=== PATIENT | male | born 1940 | race Caucasian/White ===

== ENCOUNTER 2016-09-03 00:08 | Emergency (ER) | payer MEDICARE ==
[~2016-09-03 00:08] MED LIST: AMLO5TAB2 PO; ASPI81TA3 PO; CALC-3 PO; CYCL10TA9 PO; GLIP10TA10 PO; HYDR12.55 PO; LIP40 PO; LISI40TA PO; METF1000 PO; METO50TA3 PO; OMEP20CA11 PO; TICA90TA PO; ZYL100 PO
[2016-09-03 00:14] VITALS: BP 132/84; PULSE 83; RESP 20; O2SAT 99
[2016-09-03 02:08] VITALS: BP 132/84; PULSE 83; RESP 20; O2SAT 99
[2016-09-03] MEDS ORDERED: Ondansetron 2 mg/mL 2 mL Inj IVPUSH ONE (02:20)
--- NOTE | 2016-09-03 02:20 | ED.REPORT ---
HPI-Back Pain 40 and Over Date of Service September 03, 2016 ED Provider: Dr. Shivam Guevara D.O. A 75 year old male with a medical history including CAD, DM, hypertension, chronic kidney disease, and arthritis s/p multiple back surgeries presents to the ED with left-sided lower back pain onset four weeks ago. Today, the patient was unable to ambulate. He denies dysuria or other symptoms. The patient has had similar symptoms in the past. Nursing Notes Stated Complaint: LOWER BACK PAIN Chief Complaint: Back Pain or Injury Nursing Notes Reviewed: Yes Allergies: Coded Allergies: No Known Allergies (Verified , 08/13/15) Scheduled Allopurinol (Allopurinol) 100 Mg Tablet 200 MG PO DAILY Amlodipine (Amlodipine) 5 Mg Tablet 5 MG PO DAILY Aspirin Chew (Aspirin Chew) 81 Mg Chew 81 MG PO DAILY Atorvastatin (Lipitor) 40 Mg Tablet 40 MG PO DAILY Glipizide (Glipizide) 10 Mg Tablet 10 MG PO BID Hydrochlorothiazide (Hydrochlorothiazide) 12.5 Mg Tablet 12.5 MG PO DAILY Lisinopril (Lisinopril) 40 Mg Tablet 40 MG PO DAILY Metformin (Glucophage) 1,000 Mg Tablet 1,000 MG PO BID Metoprolol Tartrate (Metoprolol Tartrate) 50 Mg Tablet 50 MG PO BID Omeprazole (Omeprazole) 20 Mg Capsule.dr 20 MG PO DAILY Prednisone (PredniSONE) 20 Mg Tablet 20 MG PO TID Scheduled PRN Cyclobenzaprine (Cyclobenzaprine) 10 Mg Tablet 10 MG PO HS PRN PRN Spasm Hydrocodone-Acetaminophen 5-325 mg (Hydrocodone-Acetaminophen 5-325 mg) 1 Each Tablet 1 TABLET PO Q4H PRN PRN For Pain Miscellaneous Medications Calcium Carbonate/Vitamin D3 (Calcium 500+D Tablet Chew) 1 Each Tab.chew 1 EACH PO Ticagrelor (Brilinta) 90 Mg Tablet 90 MG PO General Time Seen by MD: 02:19 Chief Complaint Lumbar pain Hx Obtained From: Patient Arrived By: Walk-in Sudden in Onset?: No Onset Occurred: More than a week ago... (4 weeks) Symptom Duration: Since onset Location: : Perispinal lumbar Quality: Painful Severity: Current: Moderate Severity: Maximum: Moderate Pertinent Negative: Relieved by nothing Related History: Reports: Arthritis Recent Healthcare: No recent doctor visit Similar Sx Previous: Yes Past Medical History Past Medical History Notes: PCP is Dr. Garcia Past Medical History [place] in 05/2015 Chronic kidney disease Hypertension Type II diabetes mellitus, Arthritis Coronary artery disease Hyperlipidemia Reports: Coronary artery disease, Diabetes mellitus, GERD Past Surgical History July 04 (2 stents) PEDRO and LAD subsequent restenting with a diagonal and left circumflex flex (5 stents) Reports: Back/neck surgery, Knee replacement Family History noncontributory Smoking History Former Smoker Social History Other Social History: Good social support, Local resident Ambulatory Status Independent Review of Systems Constitutional: Denies: Fever Respiratory: Denies: Non-productive cough, Shortness of breath GI: Denies: Diarrhea, Vomiting Male: Denies Dysuria Musculoskeletal: Reports: Back pain (Lower left-sided) Neurologic: Reports: Problem walking Complete sys rev & neg: except as marked. Physical Exam Initial Vital Signs Vital Signs (First) Date Time Temp Pulse Resp B/P Pulse Ox O2 Delivery O2 Flow Rate FiO2 09/03/16 00:14 36.6 83 20 132/84 99 Room Air Initial VS: Reviewed Head / Eyes: Atraumatic, Normocephalic ENT: Conjunctiva normal, No scleral icterus Neck: Supple, Full range of motion Skin: Warm, Dry, No cyanosis Psychiatric: Mood/affect normal, Behavior normal, Normal thought content General/Constitutional: Awake, Alert Distress / Hydration: Positive: Distress moderate Back: Atraumatic Flank / Spine / Paraspinal: Positive: Flank tender L Neurologic: Oriented X3, Speech NL, No motor deficits, No sensory deficits Interpretation & Diagnostics CT ABDOMEN/PELVIS Read by [facility] IMPRESSION: Degenerative spinal changes as described with severe bilateral neural foraminal narrowing bilaterally at the L5/S1 levels more now pronounced on the left side. COPD Lab Results Interpretation Result Diagram: 09/03/16 0201 09/03/16 0201 Test 09/03/16 02:01 White Blood Count 6.8th/mm3 (3.8-10.1) Red Blood Count 3.88mil/mm3 (4.40-5.80) Hemoglobin 12.8g/dL (13.8-17.2) Hematocrit 37.3% (41.0-50.0) Mean Corpuscular Volume 96.1fL (81-100) Mean Corpuscular Hemoglobin 33.0pg (27.0-35.0) Mean Corpuscular Hemoglobin Concent 34.3% (32.0-37.0) Red Cell Distribution Width 12.3% (12.3-15.4) Platelet Count 237bil/L (150-400) Neutrophils (%) (Auto) 67.5% (40-74) Lymphocytes (%) (Auto) 19.3% (14-46) Monocytes (%) (Auto) 8.9% (4-12) Eosinophils (%) (Auto) 2.8% (0-5) Basophils (%) (Auto) 0.6% (0-3) Sodium Level 141mEq/L (134-144) Potassium Level 4.9mEq/L (3.5-5.2) Chloride Level 106mEq/L (97-108) Carbon Dioxide Level 20mmol/L (18-29) Blood Urea Nitrogen 31mg/dL (8-27) Creatinine 1.25mg/dL (0.76-1.27) Estimat Glomerular Filtration Rate 60mL/min (>59) Glucose Level 256mg/dL (60-99) Calcium Level 9.4mg/dL (8.5-10.1) Total Bilirubin 0.2mg/dL (0.0-1.2) Aspartate Amino Transf (AST/SGOT) 22U/L (0-50) Alanine Aminotransferase (ALT/SGPT) 27U/L (0-44) Alkaline Phosphatase 48U/L (25-160) Total Protein 6.6g/dL (6.4-8.4) Albumin 4.2g/dL (3.4-5.0) Lipase 36U/L (13-60) Re-Eval/Medical Decision Med Decision/Clinical Course Radicular back pain with no evidence of other etiology or medical complication. Started on prednisone. Follow-up with at [facility] for further evaluation and possible treatment with epidural steroid injections. Source of Hx: Old records Re-Evaluation/Progress : Time of Eval: 02:59 Patient Status: Condition improved Re-Evaluation/Progress Note: Patient's care will be transferred to Dr. Phelps at change of shift. Counseled Regarding: Diagnosis, Lab results, Need for follow-up, When/why to return to ED Discharge & Departure Shift Change Sign-Out Patient Care Transferred: Yes (Dr. Phelps) Discussed Complaint(s): Yes Laboratory Evaluation: Ordered, not yet done Imaging Studies: Ordered, not yet done Response to Therapy: Improved Impression: Primary Impression: Radiculopathy, lumbar region Disposition: Home Discharge Condition All VS Reviewed: Yes Condition: No Change Patient Instructions: Lumbar Radiculopathy (ED) Additional Instructions: CT scan shows several areas of nerve root compression in the lumbar spine. Prednisone 20 mg by mouth 3 times a day may be helpful in reducing the swelling and inflammation and improving your situation. Follow-up with at [facility] for further evaluation and possible treatment with epidural steroid injections. Referrals: Henok Garcia MD (PCP) Scott Marie MD Care Transferred to: Dr. Phelps Care Transferred at: 03:00 Scribcoty Attestation Portions of this note were transcribed by Belle Barron and Esperanza Cee. I, Dr. Guevara and Dr. Phelps, personally performed the history, physical exam, and medical decision-making; I reviewed and confirmed the accuracy of the information in the transcribed note. Signed by: Kajal Hernandes, 09/03/2016, 03:05 copies to: Henok Garcia MD; Scott Marie MD, Todd P DO September 03, 2016 02:20 BELLE BARRON September 03, 2016 02:30 ESPERANZA CEE September 03, 2016 04:02 Angel Phelps MD September 03, 2016 04:50
[2016-09-03] MEDS: HYDROmorphone 0.5 mg/0.5 mL iSecure Syringe IVPUSH PRN ×3 (02:28→05:04)
[2016-09-03 02:37] LABS: BASOPHILS % (AUTO) 0.6 % (0-3); EOSINOPHILS % (AUTO) 2.8 % (0-5); MONOCYTES % (AUTO) 8.9 % (4-12); Mean Corpuscular Volume 96.1 fL (81-100); NEUTROPHILS % (AUTO) 67.5 % (40-74); Platelet Count 237 bil/L (150-400)
[2016-09-03 04:03] VITALS: BP 137/78; PULSE 68; RESP 19; O2SAT 95
[2016-09-03] MEDS ORDERED: predniSONE 20 mg Tablet PO ONE (04:50)
[2016-09-03] MEDS ORDERED: PRE20 PO (04:51)
[2016-09-03] MEDS ORDERED: HYDR-4003 PO (05:01)
[2016-09-03 05:38] VITALS: BP 146/74; PULSE 71; RESP 18; O2SAT 97
--- NOTE | 2016-09-03 08:02 | DRSVH ---
PROCEDURE: CT KUB ([id number]) INDICATIONS: severe left flank pain TECHNIQUE: Noncontrast 5 mm thick sections acquired from the diaphragms to the symphysis. 5 mm thick coronal an d sagittal reformats were then performed. For radiation dose reduction, the following was used: aut omated exposure control, adjustment of mA and/or kV according to patient size. COMPARISON: None. FINDINGS: Image quality: Excellent. Lung bases: Bibasilar scarring is present. Heart size is normal. Urinary system: Both kidneys are normal in size. No kidney stones. No hydronephrosis or perinephri c fat stranding. Both ureters appear non-dilated throughout their expected courses. Bladder wall th ickness is normal; no calcified bladder stones. Other solid organs: Liver and spleen are normal in size. Gallbladder is within normal limits. Panc reas is normal in contours. No adrenal nodules. Peritoneum and bowel: Unenhanced bowel loops demonstrate normal wall thickness and caliber. No free fluid or air. Normal appendix. Nodes and vessels: No retroperitoneal or mesenteric adenopathy by size criteria. Aorta and inferior vena cava are normal in caliber. Abdominal wall: There is a 27 mm diameter fat containing umbilical hernia. Pelvis: No free pelvic fluid. No inguinal hernias or adenopathy. Bones: No suspicious bony lesions. No vertebral body compression fractures. IMPRESSION: 1. No evidence of urinary tract calcification nor obstruction. 2. Normal appendix. 3. No explanation for left flank pain. Dictated by: Oswald Hood M.D. on 09/03/2016 at 7:59 Approved by: Oswald Hood M.D. on 09/03/2016 at 8:00
== END 2016-09-03 04:52 | disposition home or self-care (01) ==
LOC: SED 00:08
DX: M54.16 Radiculopathy, lumbar region (principal); I25.10 Atherosclerotic heart disease of native coronary artery without angina pectoris; E11.22 Type 2 diabetes mellitus with diabetic chronic kidney disease; I12.9 Hypertensive chronic kidney disease with stage 1 through stage 4 chronic kidney disease, or unspecified chronic kidney disease; N18.9 Chronic kidney disease, unspecified; M19.90 Unspecified osteoarthritis, unspecified site; I25.2 Old myocardial infarction; E78.5 Hyperlipidemia, unspecified; Z98.890 Other specified postprocedural states; Z95.818 Presence of other cardiac implants and grafts; Z87.891 Personal history of nicotine dependence; Z79.84 Long term (current) use of oral hypoglycemic drugs; Z79.82 Long term (current) use of aspirin
CPT/HCPCS: 36415; 74176; 80053; 83690; 85025; 96374; 96375; 96376; 99285; J1170; J2405